=== PATIENT | female | born 2000 ===

== ENCOUNTER 2018-06-04 01:11 | Emergency (ER) | payer OTHER ==
--- NOTE | 2018-06-04 01:20 | ED ---
Substance Abuse/Use - HPI Summary HPI Summary: LEVEL 5 CAVEAT: HPI LIMITED DUE TO PATIENT CONDITION, ETOH INTOXICATION A 18 y/o F brought in by ambulance presents to ED for ETOH intoxication. Pt is vomiting in stretcher. Pt is unresponsive. Per EMS: Pt was picked up from [facility], has been drinking. - History Of Current Complaint Stated Complaint: ETOH PER EMS Hx Obtained From: EMS Hx From Patient Unobtainable Due To: Other - ETOH Associated Signs And Symptoms: Vomiting - Allergies/Home Medications Allergies/Adverse Reactions: Allergies Allergy/AdvReac Type Severity Reaction Status Date / Time Unable to Assess Allergy Verified 06/04/18 01:25 PMH/Surg Hx/FS Hx/Imm Hx Previously Healthy: No - LEVEL 5 CAVEAT: PMHx LIMITED DUE TO PATIENT CONDITION, ETOH INTOXICATION - Family History Family History: LEVEL 5 CAVEAT: Soc/FHx LIMITED DUE TO PATIENT CONDITION, ETOH INTOXICATION Review of Systems - ROS Summary Review of Systems Summary: LEVEL 5 CAVEAT: ROS LIMITED DUE TO PATIENT CONDITION, ETOH INTOXICATION Positive: Vomiting All Other Systems Reviewed And Are Negative: No Physical Exam - Summary Physical Exam Summary: Appearance: Appears intoxicated. Obtunded, not responding to painful stimuli. Withdraws from confrontation to her eyes. Skin: Warm, dry, no obvious rash Eyes: sclera anicteric, no conjunctival pallor ENT: mucous membranes moist Neck: deferred Respiratory: No signs of respiratory distress Cardiovascular: Appears well perfused, pulses are nml Abdomen: deferred Musculoskeletal: Moving all 4 extremities without obvious discomfort Triage Information Reviewed: Yes Vital Signs Reviewed: Yes Completion Of Physical Exam Limited Due To: Level 5 - ETOH Diagnostics - Laboratory Result Diagrams: 06/04/18 01:37 06/04/18 01:37 Lab Statement: Any lab studies that have been ordered have been reviewed, and results considered in the medical decision making process. Course/Dx - Course Course Of Treatment: Pt is a 18 y/o F brought in by ambulance presenting with ETOH intoxication. Pt is vomiting in stretcher. Pt is obtunded, not responding to painful stimulil, but withdraws from confrontation to her eyes. Will discharge patient once sober. Discharge - Sign-Out/Discharge Documenting (check all that apply): Patient Departure - DC Patient Received Moderate/Deep Sedation with Procedure: No - Discharge Plan Condition: Improved Disposition: HOME Patient Education Materials: Alcohol Intoxication (ED) Referrals: [facility] [Outside] - Attestation Statements Document Initiated by Scribe: Yes Documenting Scribe: Kadie Villarreal Provider For Whom Scribe is Documenting (Include Credential): Dr. Diego Duvall MD Scribe Attestation: IKadie, scribed for Dr. Diego Duvall MD on 06/04/18 at 0441.
[2018-06-04 01:48] LABS: ABS Basophils 0 10^3/ul (0-0.2); ABS Eosinophils 0 10^3/ul (0-0.6); ABS Lymphocytes 2.2 10^3/ul (1.0-4.8); ABS Monocytes 0.6 10^3/ul (0-0.8); ABS Neutrophils 8.7 10^3/ul (1.5-7.7); ABS Nucleated RBC 0 10^3/ul; Eosinophil % 0.3 %; Hematocrit 38 % (33-41); Hemoglobin 12.3 g/dL (12.0-16.0); Lymphocyte % 19.3 %; Mean Corpuscular HGB Conc 32 g/dL (31-36); Mean Corpuscular Hemoglobin 29 pg (27-31); Mean Corpuscular Volume 90 fL (80-97); Mean Platelet Volume 7.9 fL (7.4-10.4); Nucleated Red Blood Cells % 0; Platelet Count 263 10^3/uL (150-450); Red Blood Count 4.22 10^6 /uL (3.70-4.87); Red Cell Distribution Width 14 % (10.5-15); White Blood Count 11.6 10^3/uL (3.5-10.8)
[2018-06-04 02:00] LABS: Alcohol 242 mg/dL (<10)
[2018-06-04 02:16] LABS: Albumin 4.1 g/dL (3.2-5.2); Anion Gap 13 mmol/L (2-11); CO2 Carbon Dioxide 17 mmol/L (22-32); Calcium 8.3 mg/dL (8.6-10.3); Chloride 107 mmol/L (101-111); Potassium 3.4 mmol/L (3.5-5.0); Sodium 137 mmol/L (135-145)
[2018-06-04 02:22] LABS: ALT 9 U/L (7-52); AST 14 U/L (13-39); Albumin/Globulin Ratio 1.8 (1-3); Alkaline Phosphatase 47 U/L (34-104); BUN/Creatinine Ratio 19.4 (8-20); Blood Urea Nitrogen 14 mg/dL (6-24); EGFR Non-African American 103.3 (>60); Globulin 2.3 g/dL (2-4); Glucose 142 mg/dL (70-100); Total Protein 6.4 g/dL (6.4-8.9)
[2018-06-04 02:34] LABS: HCG Pregnancy < 0.60 mIU/mL
[2018-06-04 06:52] VITALS: BP 110/73
== END 2018-06-04 06:48 | disposition home or self-care (01) ==
LOC: ED 01:11
DX: F10.129 Alcohol abuse with intoxication, unspecified (principal); R11.10 Vomiting, unspecified
CPT/HCPCS: 36415; 80053; 80320; 84702; 85025; 99283; G0480